=== PATIENT | male | born 1970 ===

== ENCOUNTER 2019-03-05 21:50 | Emergency (ER) | payer OTHER ==
--- NOTE | 2019-03-05 22:52 | RADIOLOGY REPORT (SQ) ---
EXAM DESCRIPTION: XR FOOT 3 OR MORE VIEWS COMPLETED DATE/TME: 03/05/2019 22:16 CLINICAL HISTORY: 48 years, Male, pain COMPARISON: None. NUMBER OF VIEWS: 3 TECHNIQUE: 3 view left foot LIMITATIONS: None. FINDINGS: Postsurgical change of the ankle. Negative for acute fracture or dislocation. Soft tissues are unremarkable IMPRESSION: No acute osseous abnormality copyright 2010 [employer]- All Rights Reserved
[2019-03-06] MEDS ORDERED: CIPROFLOXACIN HCL 500 MG TABLET PO ONE (00:26)
--- NOTE | 2019-03-06 00:32 | ER Document Report ---
ED General - General Chief Complaint: Puncture Wound to Foot Stated Complaint: FOOT INJURY Time Seen by Provider: 03/06/19 00:20 Mode of Arrival: Ambulatory Information source: Patient TRAVEL OUTSIDE OF THE [place] IN LAST 30 DAYS: No - HPI Patient complains to provider of: Nail puncture to left foot Onset: This afternoon Onset/Duration: Sudden Severity: Moderate Pain Level: 3 Associated symptoms: None Exacerbated by: Denies Relieved by: Denies Similar symptoms previously: No Recently seen / treated by doctor: No Notes: 48-year-old male coming in today with puncture wound to left foot. The story begins when he stepped on a nail at work that penetrated through his work boot and into the instep of his left foot. Complaining of pain and swelling at the site. Needs a tetanus shot. No other chronic medical problems. - Related Data Allergies/Adverse Reactions: No Known Drug Allergies Allergy (Verified 03/05/19 21:59) Past Medical History - General Information source: Patient - Social History Smoking Status: Current Every Day Smoker Frequency of alcohol use: None Drug Abuse: None Family History: Reviewed & Not Pertinent Patient has suicidal ideation: No Patient has homicidal ideation: No Renal/ Medical History: Denies: Hx Peritoneal Dialysis Past Surgical History: Reports: Hx Orthopedic Surgery - L foot, R shoulder Review of Systems - Review of Systems Notes: Constitutional: No fevers. No chills. EENT: No eye redness. No eye pain. No ear pain. No sore throat. Cardiovascular: No chest pain. No palpitations. Respiratory: No cough. No shortness of breath. No respiratory distress. Gastrointestinal: No abdominal pain. No nausea, vomiting, or diarrhea. Genitourinary: Atraumatic. No lesions. No pain. No discharge. Musculoskeletal: Positive for puncture wound sole of left foot Skin: No rash or lesions. Lymphatic: No swollen lymph nodes. Neurologic: No headache. No syncope. Psychiatric: No suicidal or homicidal ideation. Physical Exam - Vital signs Vitals: Temp Pulse Resp BP Pulse Ox 97.4 F 85 20 149/90 H 99 03/05/19 21:58 03/05/19 21:58 03/05/19 21:58 03/05/19 21:58 03/05/19 21:58 - Notes Notes: General: Well-developed, well-nourished. In no acute distress. Non-toxic appearing. Cardiac: Well-perfused. Regular rate and rhythm. No murmurs, rubs, or gallops. Pulmonary: No respiratory distress. No cyanosis. Bilateral lung fiels are clear to auscultation. Abdominal: Non-distended. Non-rigid. Bowels sounds are present in all four quadrants. No guarding or rebound. HEENT: Head is atraumatic. Conjunctivae not reddened. No tearing. PERRL. EOMI. Orbits atraumatic. No periorbital swelling or erythema. Oropharynx is without erythema, swelling, or exudates. Neck: Supple. No adenopathy. No meningismus. Dermatologic: Warm with good turgor. No rash. Atraumatic. Chest: Atraumatic. No chest wall tenderness to palpation. Musculoskeletal: There is a small puncture wound visible to the instep of the left foot plantar surface. No active bleeding. No local redness or ecchymosis. The area is warm and slightly tender to palpate Genitourinary: Examination deferred Neurologic: No gross neurologic deficits. Psychiatric: Normal mood. Course - Re-evaluation Re-evalutation: 03/06/19 00:32 Patient needs Tdap today. X-ray is negative. Given the scenario, patient will need to have this puncture wound numbed up and a channel created with a scalpel to clean it out vigorously. We will need to start him on some Cipro to prevent pseudomonal infection. 03/06/19 01:12 Patient is declining the coring procedure. We will go ahead and start him with some Cipro to prophylactically treat against potential for pseudomonal infection. - Vital Signs Vital signs: Temp Pulse Resp BP Pulse Ox 97.4 F 85 20 149/90 H 99 03/05/19 21:58 03/05/19 21:58 03/05/19 21:58 03/05/19 21:58 03/05/19 21:58 Discharge - Discharge Clinical Impression: Puncture wound of foot Qualifiers: Encounter type: initial encounter Laterality: left Qualified Code(s): S91.332A - Puncture wound without foreign body, left foot, initial encounter Condition: Good Disposition: HOME, SELF-CARE Instructions: Soap Cleansing ([facility]), Tetanus Immunization Given ([facility]), Puncture Wound ([facility]) Additional Instructions: You have elected not to have the puncture wound opened up into a wider channel so that infection has a way of coming out. Keep clean with soap and water. You can apply topical Neosporin to the area. Do not treat with alcohol and peroxide. Follow-up with your primary care doctor in the next couple days for wound recheck. If you notice that the foot is getting swollen, hot, red, draining pus please return to emergency department to be rechecked. Prescriptions: Ciprofloxacin HCl [Cipro 500 mg Tablet] 500 mg PO BID #20 tablet Naproxen 500 mg PO BID 5 Days #10 tablet Referrals: [facility] [Provider Group] - Follow up as needed
[2019-03-06] MEDS ORDERED: DIPH/PERTUSS(ACELL)/TETANUS VAC/PF 0.5 ML SYR (>=10YO) IM ONE (00:34)
[2019-03-06 01:28] VITALS: BP 119/87
== END 2019-03-06 01:26 | disposition home or self-care (01) ==
LOC: EDBD → ER 21:50
DX: S91.332A Puncture wound without foreign body, left foot, initial encounter (principal); W22.09XA Striking against other stationary object, initial encounter; Y99.0 Civilian activity done for income or pay; Z23 Encounter for immunization; F17.200 Nicotine dependence, unspecified, uncomplicated
CPT/HCPCS: 90471; 90715; 99283